=== PATIENT | female | born 1955 | race Caucasian/White ===

== ENCOUNTER → 2016-11-06 | Outpatient (CLI) | payer BC ==
--- NOTE | 2016-11-06 09:27 | DIAGNOSTIC IMAGING REPORT ---
MRA HEAD WITHOUT CONTRAST HISTORY: 60 years-old Female presents for follow-up exam status post questioned 3 mm aneurysm involving the right ophthalmic artery origin. COMPARISON: No comparison images are available at time of dictation. Comparison report from MRA of the head dated 10/09/2016 was reviewed. TECHNIQUE: MR angiography of the head was obtained utilizing 3-D [id number] sequencing with MIP reformats. FINDINGS: The bilateral internal carotid arteries, middle and anterior cerebral arteries are patent and within normal limits. Anterior communicating artery also appears normal. No aneurysm is identified involving the origin of the right ophthalmic artery. The left vertebral artery is dominant. Imaged vertebral arteries are patent and coalesce to form a normal and patent appearing basilar artery. Bilateral posterior communicating and posterior cerebral arteries are patent and within normal limits. No high-grade stenosis, aneurysm or proximal branch occlusion identified. Right greater than left polyploid mucosal thickening of the maxillary sinuses incidentally noted. Imaged brain parenchyma appears grossly unremarkable. IMPRESSION: 1. Unremarkable MRA of the head without aneurysm, high-grade stenosis or proximal branch occlusion identified. Specifically, the origins of the ophthalmic arteries appear normal bilaterally without aneurysm identified. If of further clinical concern for possible aneurysm as described on comparison report, a follow-up CTA of the head may be considered. 2. Polypoid mucosal thickening of the maxillary sinuses incidentally noted. The above report was generated using voice recognition software. It may contain grammatical, syntax or spelling errors. Electronically signed by: Nhan Naidu M.D. 11/06/2016 9:25 AM Dictated Date/Time: 11/06/2016 9:11 AM
== END | disposition home or self-care (01) ==
LOC: C.MRI 08:24
PROVIDERS: ATTEND Family Medicine
DX: I72.9 Aneurysm of unspecified site (principal); I67.1 Cerebral aneurysm, nonruptured

== ENCOUNTER → 2017-05-03 | Outpatient (CLI) | payer BC | END | disposition home or self-care (01) | LOC: C.MAMM 08:04 | PROVIDERS: ATTEND Internal Medicine Endocrinology, Diabetes & Metabolism | DX: M81.0 Age-related osteoporosis without current pathological fracture (principal); M85.852 Other specified disorders of bone density and structure, left thigh ==

== ENCOUNTER → 2017-05-18 | Outpatient (CLI) | payer BC | END | disposition home or self-care (01) | LOC: C.LAB1850 15:01 | PROVIDERS: ATTEND Internal Medicine Endocrinology, Diabetes & Metabolism | DX: E03.9 Hypothyroidism, unspecified (principal) ==